=== PATIENT | male | born 1975 | race Caucasian/White ===

== ENCOUNTER 2019-10-24 14:50 | Emergency (ER) | payer SELFPAY ==
[2019-10-24] MEDS ORDERED: NORMAL SALINE 1000 ML 1,000 ML IV ONE ×3 (15:50→19:46)
[2019-10-24] MEDS ORDERED: ONDANSETRON HCL INJ/PF 4 MG/2 ML SDV IV ONE (15:50)
[2019-10-24] MEDS ORDERED: FAMOTIDINE INJ/PF 20 MG/2 ML SDV IV ONE (16:32)
--- NOTE | 2019-10-24 16:38 | ER Document Report ---
ED GI/ - General Information source: Patient - HPI Patient complains to provider of: Abdominal pain, Diarrhea, Vomiting Onset: This morning Timing/Duration: Persistent Quality of pain: Sharp Pain Level: 5 Location: Epigastric Associated symptoms: Diarrhea, Nausea, Vomiting. denies: Urinary hesitancy, Urinary frequency, Urinary retention, Urinary urgency Exacerbated by: Denies Relieved by: Denies Similar symptoms previously: Yes Recently seen / treated by doctor: No <DUYEN GILLESPIE - Last Filed: 10/24/19 20:16> <DANI WEBSTER - Last Filed: 10/24/19 22:33> - General Chief Complaint: Vomiting Stated Complaint: VOMITING,FEVER,CHILLS Time Seen by Provider: 10/24/19 15:56 Notes: Patient presents complaining of abdominal pain with nausea vomiting and diarrhea. Patient reports vomiting numerous episodes and having diarrhea x1 episode. Patient complains of upper abdominal tenderness. No fever. Patient reports a history of previous gastric ulcers. Patient states that he has had similar episodes in which she has abdominal pain with vomiting at least once a year. Patient has had an EGD last year and did have gastric ulcer. Patient reports daily marijuana use. (DUYEN GILLESPIE) - Related Data Allergies/Adverse Reactions: No Known Allergies Allergy (Unverified 10/24/19 15:40) Past Medical History - General Information source: Patient - Social History Smoking Status: Current Every Day Smoker Chew tobacco use (# tins/day): No Drug Abuse: Marijuana Family History: Reviewed & Not Pertinent Patient has homicidal ideation: No GI Medical History: Reports: Hx Gastritis, Hx Ulcer Surgical Hx: Negative <DUYEN GILLESPIE - Last Filed: 10/24/19 20:16> Review of Systems - Review of Systems Constitutional: No symptoms reported. denies: Fever EENT: No symptoms reported Cardiovascular: No symptoms reported. denies: Chest pain Respiratory: No symptoms reported Gastrointestinal: Abdominal pain, Diarrhea, Nausea, Vomiting Genitourinary: No symptoms reported. denies: Dysuria Male Genitourinary: No symptoms reported Musculoskeletal: No symptoms reported. denies: Back pain Skin: No symptoms reported Hematologic/Lymphatic: No symptoms reported Neurological/Psychological: No symptoms reported <DUYEN GILLESPIE - Last Filed: 10/24/19 20:16> Physical Exam - General General appearance: Alert, Anxious In distress: Mild - HEENT Head: Normocephalic, Atraumatic Eyes: Normal Conjunctiva: Normal Nasal: Normal Mouth/Lips: Normal Mucous membranes: Normal Neck: Normal, Supple. No: Lymphadenopathy - Respiratory Respiratory status: No respiratory distress Chest status: Nontender Breath sounds: Normal. No: Rales, Rhonchi, Stridor, Wheezing Chest palpation: Normal - Cardiovascular Rhythm: Regular Heart sounds: S1 appreciated, S2 appreciated Murmur: No - Abdominal Inspection: Normal Distension: No distension Bowel sounds: Normal Tenderness: Tender - Epigastric Organomegaly: No organomegaly - Back Back: Normal - Extremities General upper extremity: Normal inspection, Normal strength General lower extremity: Normal inspection, Normal strength - Neurological Neuro grossly intact: Yes Cognition: Normal Chap[place] Coma Scale Eye Opening: Spontaneous [place] Coma Scale Verbal: Oriented [place] Coma Scale Motor: Obeys Commands [place] Coma Scale Total: 15 - Psychological Associated symptoms: Agitated - Skin Skin Temperature: Warm Skin Moisture: Dry Skin Color: Normal <DUYEN GILLESPIE - Last Filed: 10/24/19 20:16> - Vital signs Vitals: Temp Pulse Resp BP Pulse Ox 98.1 F 118 H 24 H 147/86 H 99 10/24/19 14:54 10/24/19 14:54 10/24/19 14:54 10/24/19 14:54 10/24/19 14:54 - Notes Notes: Patient's initial vitals demonstrate patient was tachycardic although this was obtained when patient had been vomiting. His heart rate then decreased after he was done vomiting (DUYEN GILLESPIE) Course - Laboratory Result Diagrams: 10/24/19 16:29 10/24/19 16:29 - EKG Interpretation by Sd EKG shows normal: Sinus rhythm Rate: Bradycardia When compared to previous EKG there are: Previous EKG unavailable <DUYEN GILLESPIE - Last Filed: 10/24/19 20:16> - Laboratory Result Diagrams: 10/24/19 16:29 10/24/19 16:29 <DANI WEBSTER - Last Filed: 10/24/19 22:33> - Re-evaluation Re-evalutation: 10/24/19 18:33 Patient reports nausea is improved at this time although complains of continued gastric tenderness. Additional medication ordered as well as an ultrasound at this time. 10/24/19 19:20 Patient vomited GI cocktail. Patient requesting narcotic pain medicine for his abdominal tenderness. 10/24/19 20:16 Report and handoff given to NANCY Eli (DUYEN GILLESPIE) 10/24/19 22:26 I have assumed care from the daytime provider Duyen Gillespie. She is informed that this patient has had some severe nausea and vomiting and midepigastric discomfort. She states that this is a chronic problem that has a tendency to recur. Patient is from [place] and [place] the beach today when it sat in and he started vomiting. On my review with the patient this evening patient also informs me that he has been smoking marijuana for the past 2 years I mentioned to him about hyperemesis cannabis but patient states that he takes the cannabis for the nausea vomiting because he has had the nausea and vomiting before he started with the marijuana. In any event he states he has had upper and lower endoscopies that have shown nothing he has been on multiple different medications nothing seems to totally work. States when this happens usually comes into a nearby ER and get some nausea medication and fluids and he feels better. He has a primary care provider in [place] he will contact when he gets home. He is leaving to go home on Saturday. Currently he states he feels much better and is ready for discharge. Patient's ultrasound did not show anything acute. (DANI WEBSTER) - Vital Signs Vital signs: Temp Pulse Resp BP Pulse Ox 98.6 F 59 L 17 123/60 98 10/24/19 19:06 10/24/19 19:06 10/24/19 21:01 10/24/19 21:00 10/24/19 21:01 - Laboratory Laboratory results interpreted by me: 10/24/19 10/24/19 10/24/19 16:29 16:29 19:10 WBC 11.2 H Hgb 17.2 H Lymph % (Auto) 9.8 L Absolute Neuts (auto) 9.8 H Seg Neutrophils % 86.7 H Glucose 146 H Albumin 5.1 H Urine Protein 30 H Urine Ketones 80 H - EKG Interpretation by Me Additional EKG results interpreted by me: 10/24/19 18:56 Patient with sinus bradycardia, rate of 40, no previous EKG available for comparison. Normal MS interval, normal QRS (DUYEN GILLESPIE) Discharge <DUYEN GILLESPIE - Last Filed: 10/24/19 20:16> <DANI WEBSTER - Last Filed: 10/24/19 22:33> - Discharge Clinical Impression: Vomiting Qualifiers: Vomiting type: unspecified Vomiting Intractability: unspecified Nausea presence: with nausea Qualified Code(s): R11.2 - Nausea with vomiting, unspecified Disposition: HOME, SELF-CARE Additional Instructions: VOMITING: Vomiting (or nausea without vomiting) can be caused by many other different problems. It can mean that something's wrong with the stomach, such as ulcers or inflammation or the intestinal tract, such as appendicitis. But it can also be a symptom of a problem that has nothing to do with the stomach or intestines. Vomiting is common with severe headaches, earaches, tonsillitis, and kidney infections, etc. We see it with pneumonia or heart attacks. Drugs can cause nausea and vomiting. Many abdominal problems cause vomiting; for example, gallstones, kidney stones, pancreatitis, and intestinal obstruction (blocked bowels). In most cases, curing the vomiting depends on fixing the problem that caused it. For temporary relief, we may use an anti-nausea medicine. For home use, we can prescribe suppositories, chewable pills, pills that dissolve in the mouth, or liquid anti-nausea drugs. If the vomiting seems to be caused by a problem in the stomach, acid-suppressing drugs may be prescribed as well. It's important to avoid dehydration. Sip small amounts of clear liquids (soft drinks, tea, broth, etc) . Try to take fluids frequently even if you are vomiting to prevent dehydration. Take increasing amounts of fluid and when liquids are being consumed successfully, advance to small amounts of bland food (toast, soups, mashed potatoes, etc.) until you are able to resume a regular diet. Avoid aspirin, tobacco, and alcohol. If the vomiting worsens, if the problem that's making you vomit worsens, or if there's evidence of bleeding in the stomach (such as black, tarry stool, or bloody or black vomit), you should return immediately. Also, return if abdominal pain worsens or becomes localized to one area or you develop high fever. Call your doctor if you aren't improved in 24 hours. INTRAVENOUS (I V) FLUIDS: As part of your care today, you received intravenous (IV) fluids. IV fluids are administered to patients who are dehydrated or to those who have certain chemical (electrolyte) abnormalities that need correcting. ANTINAUSEA MEDICATION: You have been given a medication to suppress nausea and vomiting. This type of medication can be given as a shot, pill, or suppository. It will usually last for many hours. Pills and shots usually last six to eight hours. For the typi radha illness, only one or two doses of the medication may be necessary. Mild lightheadedness may occur. This type of medicine can cause drowsiness. Do not drive or operate dangerous machinery while under its influence. Do not mix with alcohol. See your doctor at once if you have muscle spasms or tightness, or uncontrollable motions (particularly of the neck, mouth, or jaw). Persistent vomiting or severe lightheadedness should also be evaluated by the physician. REGLAN (METOCLOPRAMIDE): Reglan has been prescribed. This medicine affects the stomach and intestines. It can be used to treat nausea and vomiting, to prevent reflux of stomach acid up into the esophagus, or to increase the contractions of the stomach and intestines. It is often prescribed for esophagitis, and for paralysis of the stomach in diabetics. Reglan can cause either mild restlessness or drowsiness. You should contact the doctor at once if you become extremely restless, anxious, or cannot sleep, or if you develop uncontrollable motions of the lips, tongue, or jaw. Do not take alcohol with this medicine. Do not drive or operate machinery until you have been taking this medicine long enough to know how it affects you. Call the doctor if you develop abdominal pains, lightheadedness, black stool, or blood in the stool or vomitus. FOLLOW-UP CARE: If you have been referred to a physician for follow-up care, call the physicians office for an appointment as you were instructed or within the next two days. If you experience worsening or a significant change in your symptoms, notify the physician immediately or return to the Emergency Department at any time for re-evaluation. As we discussed since you are leaving to go back to [place] on Saturday highly recommend that you contact your primary care provider the nausea. Further intervention and follow-up. Meantime we will place you on some Zofran and Reglan Prescriptions: Metoclopramide HCl [Reglan 10 mg Tablet] 10 mg PO ASDIR PRN #20 tablet PRN Reason: Ondansetron [Zofran Odt 4 mg Tablet] 1 - 2 tab PO Q4H PRN #15 tab.rapdis PRN Reason: For Nausea/Vomiting Forms: Elevated Blood Pressure, Smoking Cessation Education Referrals: [facility] [Provider Group] - Follow up as needed
[2019-10-24 16:44] LABS: ABSOLUTE LYMPHOCYTES (AUTO) 1.1 10^3/uL (0.5-4.7); ABSOLUTE MONOCYTES (AUTO) 0.4 10^3/uL (0.1-1.4); ABSOLUTE NEUT (AUTO) 9.8 10^3/uL (1.7-8.2); BASOPHILS % (AUTO) 0.2 % (0-2); EOSINOPHILS % (AUTO) 0.1 % (0-6); HEMATOCRIT 48.8 % (37.9-51.0); HEMOGLOBIN 17.2 g/dL (13.5-17.0); LYMPHOCYTES % (AUTO) 9.8 % (13-45); MEAN CORPUSCULAR HGB CONC 35.2 g/dL (32.0-36.0); MEAN CORPUSCULAR VOLUME 94 fl (80-97); MONOCYTES % (AUTO) 3.2 % (3-13); PLATELET COUNT 225 10^3/uL (150-450); RED BLOOD COUNT 5.19 10^6/uL (4.35-5.55); RED CELL DISTRIBUTION WIDTH 13.4 % (11.5-14.0); SEGMENTED NEUTROPHILS % (AUTO) 86.7 % (42-78); TOTAL CELLS COUNTED % (AUTO) 100 %; WHITE BLOOD COUNT 11.2 10^3/uL (4.0-10.5)
[2019-10-24 16:59] LABS: ALBUMIN 5.1 g/dL (3.5-5.0); ALKALINE PHOSPHATASE 82 U/L (38-126); ANION GAP 9 (5-19); ASPARTATE AMINO TRANSFERASE 34 U/L (17-59); BILIRUBIN,TOTAL 0.7 mg/dL (0.2-1.3); BLOOD UREA NITROGEN 14 mg/dL (7-20); CALCIUM 9.9 mg/dL (8.4-10.2); CARBON DIOXIDE 29 mmol/L (22-30); CHLORIDE 104 mmol/L (98-107); GLUCOSE 146 mg/dL (75-110); POTASSIUM 4.1 mmol/L (3.6-5.0); TOTAL PROTEIN 8.1 g/dL (6.3-8.2)
[2019-10-24] MEDS ORDERED: HALOPERIDOL LACTATE INJ 5 MG/1 ML VIAL IM ONE (17:07)
[2019-10-24] MEDS ORDERED: MAG HYDROX/AL HYDROX/SIMETH SUSP 30 ML UDCUP PO ONE (18:33)
[2019-10-24] MEDS ORDERED: LIDOCAINE 2% VISCOUS SOLN 15 ML UDCUP PO ONE (18:33)
[2019-10-24] MEDS ORDERED: FENTANYL CITRATE INJ/PF 100 MCG/2 ML AMPUL IV ONE (19:19)
[2019-10-24 19:43] LABS: APPEARANCE,URINE CLEAR; BILIRUBIN,URINE NEGATIVE (NEGATIVE); COLOR,URINE YELLOW; GLUCOSE, URINE NEGATIVE (NEGATIVE); KETONES,URINE 80 mg/dL (NEGATIVE); LEUKOCYTE ESTERASE,URINE NEGATIVE (NEGATIVE); NITRITE,URINE NEGATIVE (NEGATIVE); PROTEIN,URINE 30 mg/dL (NEGATIVE); URINE SPECIFIC GRAVITY 1.023; UROBILINOGEN,URINE NEGATIVE mg/dL (<2.0)
[2019-10-24 19:57] LABS: URINE AMPHETAMINES SCREEN NEGATIVE; URINE BARBITURATES SCREEN NEGATIVE; URINE BENZODIAZEPINES SCREEN NEGATIVE; URINE COCAINE SCREEN NEGATIVE; URINE METHADONE SCREEN NEGATIVE; URINE PHENCYCLIDINE SCREEN NEGATIVE
[2019-10-24 19:59] LABS: URINE MARIJUANA (THC) SCREEN UNCONFIRMED POSITIVE
--- NOTE | 2019-10-24 20:32 | EKG REPORT ---
SEVERITY:- ABNORMAL ECG - SINUS BRADYCARDIA WITH JUNCTIONAL ESCAPE RHYTHM BORDERLINE T ABNORMALITIES, ANT-LAT LEADS : Confirmed by: Jason Lisa MD 24-Oct-2019 20:32:01
--- NOTE | 2019-10-24 20:45 | RADIOLOGY REPORT (SQ) ---
EXAM DESCRIPTION: XR CHEST 1 VIEW COMPLETED DATE/TME: 10/24/2019 19:48 CLINICAL HISTORY: 44 years, Male, upper abd pain EXAM DESCRIPTION: CLINICAL HISTORY: upper abd pain COMPARISON: None. FINDINGS: Single view of the chest is submitted. Cardiac silhouette is normal. No focal parenchymal or pleural disease. No acute bony abnormality. There is no significant pulmonary vascular engorgement. IMPRESSION: No evidence of acute cardiopulmonary disease.
--- NOTE | 2019-10-24 21:09 | RADIOLOGY REPORT (SQ) ---
EXAM DESCRIPTION: Right upper quadrant abdominal ultrasound CLINICAL HISTORY: 44 years Male; +N/v, abd pain umbilical pain. TECHNIQUE: Abdominal ultrasound was performed. COMPARISON: None. FINDINGS: Pancreas: Head and body of the pancreas are unremarkable. The tail was not well seen. Liver: The liver measures 13.2 cm in length. Echogenicity is within normal limits. The portal vein is patent with hepatopedal flow.. Gallbladder: The wall measures 2.1 mm. No stones. No sonographic Markham's. No para cholecystic fluid. Common bile duct: 4.5 mm. Right kidney: Measures 12.0 x 5.3 x 6.7 cm. Echogenicity is within normal limits. Blood flow is present.. No hydronephrosis. Aorta:Visualized portions are within normal limits. IVC: Visualized portions are within normal limits. Ascites: None IMPRESSION: Unremarkable right upper quadrant ultrasound. No acute process.
[2019-10-24 23:01] VITALS: BP 120/65
== END 2019-10-24 22:58 | disposition home or self-care (01) ==
LOC: ER 14:50
DX: R11.2 Nausea with vomiting, unspecified (principal); R19.7 Diarrhea, unspecified; R00.1 Bradycardia, unspecified; R10.9 Unspecified abdominal pain; R10.816 Epigastric abdominal tenderness; F17.200 Nicotine dependence, unspecified, uncomplicated; F12.10 Cannabis abuse, uncomplicated; Z87.11 Personal history of peptic ulcer disease; Z87.19 Personal history of other diseases of the digestive system
CPT/HCPCS: 93005; 99284; 96372; 96361; 96374; 96375; 36415; 83690; 85025; 80053; 81001; 80307; 71045; 76705; 93010; J3010; J1630; J3490; J2405; J7030; S0028